=== PATIENT | male | born 1960 | race Caucasian/White ===

== ENCOUNTER → 2017-12-10 | Outpatient (CLI) | payer OTHER ==
[~2017-12-10] VITALS: Ht 177.8 cm; Wt 79.4 kg
[~2017-12-10] MED LIST: FLOMAX0.4 MG PO; GABAPENTIN 100100 MG PO; IBUPROFEN200 M2 PO; LEXAPRO20 MG PO; NORCO 5-325 TA1 EACH PO; OXYCODONE-ACET1 EAC2 PO; PAXIL PO; PERCOCET PO; PROZAC 20 MG20 MG PO; VALIUM5 MG PO
--- NOTE | ~2017-12-10 | HPC ---
[facility] [place] [address] PAIN MANAGEMENT CONSULTATION Name: DANAN BROWN [id number] Admission: 12/10/17 Attend Phys: Rajendra Dickerson MD Discharge: Date of : 56 Report #: [id number] THIS REPORT FOR: //name// CC: Vikram Dickerson CHIEF COMPLAINT: Excruciating right leg pain. HISTORY OF PRESENT ILLNESS: The patient is a 57-year-old who I have seen on previous occasions for lumbar radiculopathy. He has had short-term response to transforaminal epidural injections. The first time I treated him for this was in 2010. Responded fairly well. The second time was in 2013. He has a history of back surgery that dates back into the 1980s with Dr. Manuel Woodward, done at [facility] when he had recurring symptoms of radiculopathy, he was seen at the [facility] where an MRI revealed a synovial cyst. They performed a synovial cyst resection there and he did well for a number of months following surgery. I saw him about 6 months after that surgery with recurring radicular pain in the right distribution of L5 and performed an L5-S1 transforaminal epidural injection with quite good relief. He was doing well up until recently. He has been doing a lot of remodeling and had an exacerbation of his radicular pain. 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 It follows fairly consistently in L5 distribution into the right leg. It is associated with some tingling sensations, but mostly it is a neuropathic deep burning, aching sensation that nearly brings him to tears. I started him over the phone few days ago with gabapentin, quickly increasing dose to 300 mg 3 times a day. This has not been helpful. He has been using small amount of hydrocodone, which were available with no significant relief other than mild reductions of the excruciating sharp pain. He called me 2 weeks ago about getting in for an epidural injection. I told him that due to my schedule, I could see him, but that he would be able to receive the injection on that day and that it would require a preauthorization process. I referred him to Dr. Mariano Jacques who agreed to perform the injection at the freestanding clinic outside of the insurance for a flat fee. This was far less than negotiated flat fee that he would need to pay at the hospital. He was so sick and tired of these preauthorization requirements from insurance. In this case, it made my patient seek out care outside of the system. I fully trust Dr. Jacques, but the injections that he performed was midline, translaminar and was not nearly as effective as the transforaminal injection, which we had performed at [facility]. [address] [address] PAIN MANAGEMENT CONSULTATION Name: DANNA BROWN Room #: REG CLMercedes Varghese#: [id number] Admission: 12/10/17 Attend Phys: Rajendra Dickerson MD Discharge: Date of : 56 Report #: [id number] The patient is now back in my clinic today, certainly little better after the epidural injection, no better with gabapentin and is hopeful that we can come up with a plan. He tells me adamantly that he does not want to repeat surgery. MEDICATIONS: Hydrocodone 5/325 one tablet every 4-6 hours p.r.n., gabapentin 300 mg t.i.d., fluoxetine 1 tablet daily. ALLERGIES: None. PHYSICAL EXAMINATION: GENERAL: He is in some distress today. VITAL SIGNS: Blood pressure 145/84, heart rate 64, respirations 14. He is 5 feet 8 with a BMI of 25.1. He stands throughout much of our visit. Sitting is uncomfortable for him. He ambulates with a mild antalgic gait. BACK: Examination of the spine reveals tenderness across the lumbosacral segment. There is no sacroiliac joint tenderness. In the supine and seated position, there is a marked right straight leg raising discomfort that follows an L5 distribution to the foot. Pinprick sensation is intact. Deep tendon reflexes are 2+ at the knees bilaterally with no asymmetry and there is an absent ankle jerk reflex bilaterally. Focal weakness is noted in plantar and dorsiflexion, leg extension on the right in comparison to the left. It is noted there is some slight atrophy of the calf on the right in comparison to the left suggesting a chronic denervation. STUDIES: I have no recent studies. IMPRESSION: Post-laminectomy syndrome with radiculopathy following an L5-S1 distribution. Some L4 distribution as well. History of right synovial cyst L5-S1. The cyst was resected at the [facility] in 2012. RECOMMENDATIONS: 1. I think we need an MRI scan at this point. He has not responded well to initial therapies. 2. Follow up in the pain clinic after the MRI, which will be performed in 5 days. We would like to consider an epidural injection using a transforaminal approach, possibly an L5-S1 right transforaminal injection based upon what we see on the MRI at that time. 3. I have ordered him for acute use, stronger pain medication, oxycodone 10/325 one tablet 3 times daily. Precautions given. 4. He will not have the MRI without sedation. I provided him with five Valium 5 mg tablets to take on entry to the hospital and I have given him some coaching for positioning and meditative approaches that he can use along with the Valium, music, and other distractionary techniques undergoing his MRI. [facility] [address] [place] [address] PAIN MANAGEMENT CONSULTATION Name: DANNA BROWN Room #: [facility].#: [id number] Admission: 12/10/17 Attend Phys: Rajendra Dickerson MD Discharge: Date of : 56 Report #: [id number] Followup visit pain clinic in 5 days. By: [id number] 0515 Rajendra Dickerson MD /nt
[2017-12-10 15:04] VITALS: BP 145/84
== END ==
LOC: PAIN 11-26 10:52
DX: M54.17 Radiculopathy, lumbosacral region (principal); M71.38 Other bursal cyst, other site; M96.1 Postlaminectomy syndrome, not elsewhere classified; Z79.899 Other long term (current) drug therapy

== ENCOUNTER → 2017-12-15 | Outpatient (CLI) | payer OTHER | LOC: MRI 14:40 | DX: M51.16 Intervertebral disc disorders with radiculopathy, lumbar region (principal); M47.26 Other spondylosis with radiculopathy, lumbar region; M41.86 Other forms of scoliosis, lumbar region; M51.17 Intervertebral disc disorders with radiculopathy, lumbosacral region ==

== ENCOUNTER → 2017-12-18 | Outpatient (CLI) | payer OTHER ==
[~2017-12-18] VITALS: Ht 177.8 cm; Wt 79.4 kg
--- NOTE | ~2017-12-18 | HPC ---
[facility] [place] [address] [place] [address] PAIN MANAGEMENT CONSULTATION Name: DANNA BROWN [id number] Admission: 12/18/17 Attend Phys: Rajendra Dickerson MD Discharge: Date of : 56 Report #: [id number] THIS REPORT FOR: //name// CC: Vikram Dickerson DATE OF SERVICE: 12/18/2017 Followup visit for persistent lumbar radiculopathy on the right, status post laminectomy. The patient returns to pain clinic today and I have a chance to go over his MRI with him. It shows that there are postoperative changes at L4-L5 and a right paracentral disk protrusion tapering the AP dimension of the canal to 13 mm. The transverse dimension is narrowed to 8. Disk extends into the foramina causing moderate foraminal stenosis at that level which is felt to be responsible for his severe radicular pain. It should be noted that there is also a left paracentral disk protrusion at L5-S1 abutting the left S1 nerve root, but this is asymptomatic. There is mild scoliosis change. Discussed with the patient the use of a transforaminal epidural injection. He has had one epidural injection performed without the help of the MRI as guidance using midline approach. This was performed by Dr. Jacques at his freestanding clinic. With the failure of that injection, we are hopeful that a transforaminal approach may help him avoid surgery. He is also on some stronger pain medication oxycodone 5/325 and I would like to get him off that as soon as possible. We discussed the importance of safeguarding all medications and using them carefully per our agreement and I re-signed an informed consent for opioid treatment today. PHYSICAL EXAMINATION: GENERAL: He reports that his pain score remains high in the 8-9 range at its worst. It is difficult for him to lie, although he feels that he is making some slight improvement, most likely due to tincture of time. PHYSICAL EXAMINATION: Blood pressure is 140/79, heart rate 61, respirations 14. Moves from sitting to standing position, walks with an antalgic gait. He has a marked right straight leg raising pain that follows an L5-S1 distribution. There is also some pain along the L4 distribution in the anterior thigh and down into the medial aspect of the calf and foot. Sensation is diminished. There is no focal weakness. Deep tendon reflexes are diminished at the knees and ankles. IMPRESSION: [facility] [address] [place] [address] PAIN MANAGEMENT CONSULTATION Name: DANNA BROWN Room #: REG CLI [facility].#: [id number] Admission: 12/18/17 Attend Phys: Rajendra Dickerson MD Discharge: Date of : 56 Report #: [id number] 1. Post-laminectomy syndrome with radiculopathy following an L5-S1 distribution plus some L4. 2. History of synovial cystectomy L5-S1. New MRI demonstrating evidence of disk protrusion into the neural foramen at L4-L5. PROCEDURE: L4-L5 transforaminal epidural injection. After informed consent, the patient was taken to fluoroscopic suite, placed prone, skin prepped with ChloraPrep. Skin anesthetized over the L4-L5 neural foramen. Using triplanar fluoroscopic views, I advanced needle gently into the neural foramen. There was no blood or CSF aspirated. A 0.25 mL of Omnipaque was injected and excellent spread of dye seen outlining the nerve into the epidural space, was followed by 3 mL of 0.5% lidocaine mixed with 80 mg of triamcinolone. He tolerated the procedure well. Pain was reduced dramatically in the recovery room and was discharged. We will followup by phone. <ELECTRONICALLY SIGNED> By: Rajendra Dickerson MD 12/19/17 1312 [id number] [id number] Rajendra Dickerson MD /nt
[2017-12-18 10:33] VITALS: BP 148/79
== END | disposition home or self-care (01) ==
LOC: PAIN 07:08
DX: M51.16 Intervertebral disc disorders with radiculopathy, lumbar region (principal); M96.1 Postlaminectomy syndrome, not elsewhere classified; M99.73 Connective tissue and disc stenosis of intervertebral foramina of lumbar region; Z98.890 Other specified postprocedural states; Z79.899 Other long term (current) drug therapy

== ENCOUNTER → 2018-01-15 | Outpatient (CLI) | payer OTHER ==
[~2018-01-15] VITALS: Ht 177.8 cm; Wt 77.3 kg
[~2018-01-15] MED LIST changes: +TRAMADOL 50 MG50 MG PO
--- NOTE | ~2018-01-15 | HPC ---
[facility] [place] [address] PAIN MANAGEMENT CONSULTATION Name: DANNA BROWN Room #: REG CL [facility].#: [id number] Admission: 01/15/18 Attend Phys: Rajendra Dickerson MD Discharge: Date of : 56 Report #: [id number] THIS REPORT FOR: //name// CC: Vikram Dickerson DATE OF SERVICE: 01/15/2018 CHIEF COMPLAINT: Followup visit for persistent lumbar radiculopathy on the right. The patient returns to pain clinic today and is getting by. His pain score remains moderate at 5-6, but he is able to get through his day at work and takes an oxycodone at night to help with sleep. His previous injection of transforaminal injection performed at L4-L5 provided about 60% improvement. He does have a significant narrowing that is caused by scar tissue in the area of previous surgery as well as a protruding disk at L4-L5. This is in the area of the neural foramen. He has reluctance to undergo further surgery, understandably, so we discussed today the many potential options that remain. We have some hope that over time, he will continue to improve. We have seen patients even with this degree of narrowing see some improvement over time as activity, exercise, epidural steroid injections in time allow things to quiet down. The option of spinal cord stimulation was raised. He is an ideal candidate and currently has no back pain. All of his pain is in his leg following an L4-L5 distribution. He has no significant weakness, but there is some mild weakness noted on the right in comparison to the left. PHYSICAL EXAMINATION: Blood pressure is 114/69, heart rate of 67, respirations 16. Moves from sitting to standing position without too much difficulty. Continues to have some right straight leg raising pain following an L4-L5 distribution in the anterior thigh into the medial aspect of the calf of it, overall it is improved. Sensation is diminished. IMPRESSION: 1. Post-laminectomy syndrome with radiculopathy, L4-L5, L5-S1 distribution. 2. History of synovial cystectomy L5-S1. MRI showing disk protrusion into the neural foramen at L4-L5. PLAN: We will consider another epidural in January. We will see how he is doing. The option of surgery remains. If he worsens, has more weakness or decides that he wants to pursue that option, we will refer him on to a surgeon at [place]. He also can return to the [facility] where he has excellent [facility] [address] [place] [address] PAIN MANAGEMENT CONSULTATION Name: DANNA BROWN Room #: REG [facility].#: [id number] Admission: 01/15/18 Attend Phys: Rajendra Dickerson MD Discharge: Date of : 56 Report #: [id number] connections with his [id number], and staff there. That is where he had his synovial cystectomy. I discussed medications with him as well and given him a trial of tramadol 50 mg 1 tablet q. 6 hours as needed for pain, so he has something for the daytime use. He does not like taking pain medications and I agree that we should use only what is the necessary lowest effective dose. By: [id number] 0145 Rajendra Dickerson MD /nt
[2018-01-15 15:08] VITALS: BP 114/69
== END ==
LOC: PAIN 07:02
DX: M54.17 Radiculopathy, lumbosacral region (principal); M96.1 Postlaminectomy syndrome, not elsewhere classified; M71.38 Other bursal cyst, other site

== ENCOUNTER → 2018-02-20 | Outpatient (CLI) | payer OTHER ==
[~2018-02-20] VITALS: Ht 177.8 cm; Wt 79.8 kg
[~2018-02-20] MED LIST changes: +CYMBALTA30 MG PO
--- NOTE | ~2018-02-20 | HPC ---
[facility] [address] [place] [address] PAIN MANAGEMENT CONSULTATION Name: DANNA BROWN [facility] [id number] Admission: 02/20/18 Attend Phys: Rajendra Dickerson MD Discharge: Date of : 56 Report #: [id number] THIS REPORT FOR: //name// CC: HEATHER Dickerson DATE OF SERVICE: 02/20/2018 CHIEF COMPLAINT: Persistent right leg pain with radiculopathy following an L5-S1, L4-L5 distribution. The patient returns to pain clinic today and is about 20-30% better than he was when we performed the first transforaminal injection on 01/15/2018, but still has a significant amount of discomfort and requires the use of oxycodone for enough relief that he can continue to function at work and at home. He is discouraged about his slow recovery, although he has been adamant against back surgery is now entertaining the possibility. He has most recent laminectomy performed for synovial cyst at the [facility] where his oqkpmir-lz-xaw, , is a booth cashier. He has been encouraged to return there. We talked about perhaps getting a second opinion in [place]. He is interested in a minimally invasive approach. We sat at the desk today and both reviewed his MRI. There is neural foraminal encroachment on the side of his pain on the right and there is scar tissue noted on the left from a previous laminectomy, both encroaching upon the canal creating spinal stenosis, but a fair amount of encroachment on the lateral recess along the right at L4-L5 and L5-S1. His pain follows an L5 and an S1 distribution and it is likely that there is some involvement in the lateral recess of the descending nerve roots. I provided him a transforaminal epidural injection at L4-L5 today, I suggested that we proceed injecting above and below this area with an L4-L5, L5-S1 2-level transforaminal epidural injection. I will inject the same amount of medications, but split it at 2 levels. We also decided that we will add to his regimen of oxycodone, Cymbalta 30 mg. He tends toward depression when his pain is severe and this is certainly a situational depression worsened by his limitations in his worry about the future. We talked about the pain relieving benefits of Cymbalta. I talked about spinal cord stimulation in the past, but did not review that once again today. We will see how he does with this injection and then I will get an opinion from Dr. March if I can looking at his x-rays and we will decide on surgery in the near future. [address] [address] PAIN MANAGEMENT CONSULTATION Name: KEVINDANNA VELAZQUEZ Room #: REG CLI [facility]#: [id number] Admission: 02/20/18 Attend Phys: Rajendra Dickerson MD Discharge: Date of : 56 Report #: [id number] PHYSICAL EXAMINATION: Affect is slightly frustrated and worried. His blood pressure is 129/69, heart rate is 59, respirations 14, his BMI is 25.3. Moves from sitting to standing position. His gait is antalgic. He has positive straight leg raising following an L5-S1 distribution. Sensation is intact. No significant focal weakness is noted at this time. IMPRESSION AND PLAN: Right lumbar radiculopathy. This is most likely due to spinal stenosis. He has a right paracentral disk protrusion tapering the dimensions of the canal to 13 mm x 8 mm with a disk extending into the foramina causing moderate foraminal stenosis at L4-L5. In addition, there is a left paracentral disk protrusion abutting the left S1 nerve root. There is scar tissue from his previous laminectomy. PROCEDURE: A 2-level right L4-L5, L5-S1 transforaminal epidural injection under fluoroscopic guidance. After informed consent, he was taken to fluoroscopic suite, placed prone, skin prepped with ChloraPrep. Skin was anesthetized over the L4-L5 and L5-S1 neural foramen. Using triplanar fluoroscopic views, I advanced needle gently into the neural foramen without paresthesia. A 0.25 mL of Omnipaque was injected through each needle and great epidurogram was achieved above and below the level of L4-L5. This was then followed at each level by 2 mL of 0.5% lidocaine mixed with 40 mg of triamcinolone in each needle. He tolerated the procedure well. Pain reduction by about 50% at discharge. We will follow up by phone. By: [id number] Rajendra Dickerson MD /nt
[2018-02-20 09:40] VITALS: BP 129/69
== END | disposition home or self-care (01) ==
LOC: PAIN 09:25
DX: M48.061 Spinal stenosis, lumbar region without neurogenic claudication (principal); M54.16 Radiculopathy, lumbar region; F43.21 Adjustment disorder with depressed mood; Z98.890 Other specified postprocedural states; Z79.899 Other long term (current) drug therapy

== ENCOUNTER → 2018-04-23 | Outpatient (CLI) | payer OTHER | LOC: MRI 12:42 | DX: M47.26 Other spondylosis with radiculopathy, lumbar region (principal); M79.604 Pain in right leg ==

== ENCOUNTER → 2020-06-07 | Outpatient (CLI) | payer OTHER | LOC: CAT 13:47 | PROVIDERS: ATTEND Family Medicine | DX: Z13.6 Encounter for screening for cardiovascular disorders (principal); I25.10 Atherosclerotic heart disease of native coronary artery without angina pectoris; E78.00 Pure hypercholesterolemia, unspecified ==